=== PATIENT | male | born 2000 | race Caucasian/White ===

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

== ENCOUNTER 2022-06-09 08:46 | Emergency (ER) | payer OTHER, SELFPAY ==
[2022-06-09 11:00] LABS: UTC Influenza A Antigen Positive (Negative); UTC Influenza B Antigen Negative (Negative)
[2022-06-09 11:02] VITALS: BP 161/77; PULSE 76; RESP 18; TEMP 36.8; O2SAT 97; BMI 21.5
[2022-06-09 11:12] LABS: UTC Strep Screen (Rapid) Negative (Negative)
--- NOTE | 2022-06-09 11:15 | EXP.UTC ---
Discharge Plan Disposition Patient Disposition: Home, Self-Care Condition: Good Prescriptions Prescriptions: No Action loratadine [Children's Claritin] 5 mg/5 mL solution 10 ml PO DAILY Referrals Follow up/Referrals: Tammy Kwan [Primary Care Provider] - See instructions Activity Restrictions/Add. Instructions Additional Instructions/Restrictions: Start Tamiflu today if you are going to take it. Discussed risk and possible benefits. Lots of rest Increase Fluids water, Gatorade, powerade, pedialyte,if /toddler/child Alternate Tylenol and / or ibuprofen as discussed for fever, aches, chills Follow up IMMEDIATELY with your family doctor for new or worsening Symptoms OR no noticeable improvement over the next 48-72 hours, 911 for difficulty or breathing You or your child area contagious until no fever, aches, chills for 24 hours with medication for symptoms Help Prevent the spread of influenza: ?Wash your hands often. Use soap and water. Wash your hands after you use the bathroom, change a child's diapers, or sneeze. Wash your hands before you prepare or eat food. Use gel hand cleanser that has 60% alcohol, when soap and water are not available. Do not touch your eyes, nose, or mouth unless you have washed your hands first. Cover your mouth when you sneeze or cough. Cough into a tissue or the bend of your arm. If you use a tissue, throw it away immediately and wash your hands. Clean shared items with a germ-killing pecan cleaner. Clean table surfaces, doorknobs, and light switches. Do not share towels, silverware, and dishes with people who are sick. Wash bed sheets, towels, silverware, and dishes with soap and water. Wear a mask over your mouth and nose if you are sick. The face mask may help protect others from becoming infected with the flu. Wear the mask when in common areas of your home or if you seek care with a healthcare provider. Stay away from others if you are sick. Stay at home until 24 hours after your fever and symptoms are gone. Clinical Impressions Clinical Impression: Influenza A Stand Alone Forms Stand Alone Forms: Work/School Release Instructions Patient Instructions: Influenza, DI for Influenza -- Adult Discharge ED Provider: Laura Fernandez [facility] [place] HPI General Stated complaint: Congestion,Sore throat,Bodyache,cough Mode of Arrival: Ambulatory Source of Information: Patient Limitations: No Limitations Time Seen by Provider: 06/09/22 11:15 Description of Symptoms (Recalled from Triage Doc. by RN): pt comes in with c/o chills, body aches, fatigue, headache, congestion, runny nose, sore throat. HEENT Symptoms (Recalled from RN notes): Yes Resp Symptoms (Recalled from RN notes): Yes Skin Symptoms (Recalled from RN notes): No MS Symptoms (Recalled from RN notes): No Functional Status (Recalled from RN notes): n/a History of Present Illness Provider Complaint: Patient states that he started on Thursday with nasal congestion and runny nose State that yesterday he started with fever, chills and body aches and worsening of headache today so he came in to get checked Related Data Home Medications Medication Instructions Recorded Confirmed loratadine 5 mg/5 mL oral solution 10 ml PO DAILY 04/13/20 04/13/20 (Children's Claritin) Allergies Allergy/AdvReac Type Severity Reaction Status Date / Time cat dander Allergy Severe Watery Eye Verified 06/09/22 11:08 Worker's Comp Is this a Worker's Comp case?: No PFSH PFSH Social History Smoking Status: Never smoker second hand exposure: No alcohol intake: never substance use type: denies use current occupational status: employed and student Travel in the last 8 weeks: None ROS Obtained: Yes All systems reviewed & no a
[2022-06-09 11:32] VITALS: BP 161/77; PULSE 76; RESP 18; TEMP 36.8
== END 2022-06-09 11:36 | disposition home or self-care (01) ==
PROVIDERS: Emergency Provider Nurse Practitioner; PCP Pediatrics
DX: J10.1 Influenza due to other identified influenza virus with other respiratory manifestations (principal); M79.10 Myalgia, unspecified site; R05.9 Cough, unspecified; R53.82 Chronic fatigue, unspecified; R51.9 Headache, unspecified; Z79.899 Other long term (current) drug therapy; Z88.8 Allergy status to other drugs, medicaments and biological substances
CPT/HCPCS: 87804; 87880; 99213; G0463